=== PATIENT | male | born 1995 | race Caucasian/White ===

== ENCOUNTER 2016-12-25 10:19 | Emergency (ER) | payer OTHER ==
[~2016-12-25 10:19] MED LIST: CLINDAMYCIN HC300 MG PO; HYCODAN60 ML 5MG/ PO; IBUPROFEN600 MG PO; NO MEDICATIONS; VIBRAMYCIN100 M1 PO; VICODIN 5/1 TAB 5/50 PO
== END 2016-12-25 11:42 | disposition home or self-care (01) ==
LOC: SED 10:19
DX: H10.9 Unspecified conjunctivitis (principal); F17.210 Nicotine dependence, cigarettes, uncomplicated; Z88.1 Allergy status to other antibiotic agents
CPT/HCPCS: 99283